=== PATIENT | female | born 1990 | race Caucasian/White ===

== ENCOUNTER 2020-08-12 14:40 | Emergency (ER) | payer BC ==
--- OUTSIDE RECORDS SUMMARY | 2020-08-12 14:44 | XMS REPORT | Continuity of Care Document ---
:1990 Author Organization [facility] t Address [address] [place] [address] Care Team Providers Name Role Phone Cole Mercer MD Primary Care Physician ALBERTO Attending Clinician Unavailable BLANCA Attending Clinician Unavailable GENEVA Attending Clinician Unavailable Problems Condition Condition Condition Status Onset Resolution Last Treating Co mments Source Name Details Category Date Date Treatment Clinician Date Bacterial Bacterial Problem Active [place] vaginosis Vaginosis 9-25 da 00:00: Medical 00 Group Intermenst Intermenst Problem Active M at[facility] rual rual 9-25 da bleeding - Bleeding - 00:00: Me dical irregular Irregular 00 Grou p HPV - HPV - Problem Active [place] Human Human 8-15 da papillomav Papillomav 00:00: Me dical irus test irus Test 00 Grou p positive 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 Intraepith 00:00: Me dical elial elial 00 Group lesion on Lesion on cervical Cervical Papanicola Papanicola ou smear ou Smear Oral Oral Problem Active [place] contracept Contracept 7-18 da ion ion 00:00: Medical 00 Group Gynecologi Gynecologi Problem Active M at[place] c c 7-18 da examinatio Examinatio 00:00: Me dical n n 00 Group 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 ysici 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 History of History of Problem Resolve Univers 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 d ity of female female [place] Physici ans ESTEPHANIA III ESTEPHANIA III Problem Active Univers (cervical (cervical ity of intraepith intraepith [place] elial elial Physici neoplasia neoplasia ans III) III) Pelvic Pelvic Problem Active Univers pain pain ity of [place] Physici ans Left knee Left knee Problem Active Uni vers pain pain ity of [place] Physici ans Encounter Encounter Problem Active Uni vers for for ity of preconcept preconcept [place] Physici consultati consultati an s on on Rupture of Rupture of Problem Active U nivers anterior anterior ity of cruciate cruciate [place] ligament ligament Physic i of left of left ans knee, knee, initial initial encounter encounter Complex Complex Problem Active Univers tear of tear of ity of medial medial [place] meniscus meniscus Physic i of left of left ans knee, knee, initial initial encounter encounter Complex Complex Problem Active Univers tear of tear of ity of lateral lateral [place] meniscus meniscus Physic i of left of left ans knee, knee, initial initial encounter encounter Positive Positive Problem Active Unive rs urine urine [place] test test Physici ans Right Right Problem Active Univers inguinal inguinal ity of pain pain [place] Physici ans UTI UTI Problem Active Univers symptoms symptoms ity of [place] Physici ans Problem Active Uni vers of unknown of unknown it y of anatomic anatomic [place] location location Physic i ans Acute Acute Problem Active Univers left-sided left-sided it y of low back low back [place] pain pain Physici without without ans sciatica sciatica Vaginal Vaginal Problem Active Univers discharge discharge ity of during during [place] , , Ph ysici antepartum antepartum an s Problem Active Uni vers ity of [place] Physici ans Yeast Yeast Problem Active Univers infection infection ity of of the of the [place] vagina vagina Physici ans Allergies, Adverse Reactions, Alerts This patient has no known allergies or adverse reactions. Family History Family Member Diagnosis Comments Start Date Stop Date Source Mother Family history of Univers ity of hypertension [place] Physic ians Mother Family history of Univers ity of diabetes mellitus [place] P hysicians Mother Family history of Univers ity of cardiac disorder [place] Ph ysicians Mother Family history of Univers ity of cerebrovascular [place] Phy sicians accident (CVA) Father Family history of Univers ity of hypertension [place] Physic ians Father Family history of Univers ity of diabetes mellitus [place] P hysicians Father Family history of Univers ity of cardiac disorder [place] Ph ysicians Father Family history of Univers ity of cerebrovascular [place] Phy sicians accident (CVA) Social History Social Habit Start Date Stop Date Quantity Comments Source Sex Assigned At [facility] ethodist Alcohol intake 2018-10-29 2018-10-29 Current drinker of [place] Vargas 00:00:00 00:00:00 alcohol (finding) Alcohol Comment 2018-10-29 2018-10-29 occasional [facility] ethodist 00:00:00 00:00:00 Smoking Status Start Date Stop Date Source Never smoker [place] Jose Juanis Medications Ordered Filled Start Stop Current Ordering Indication Dosage Frequency Signature Comments Components Source Medication Medication Date Date Medication? Clinician (SIG) Name Name Fluconazole Fluconazole 2019-0 Yes BRI TAKE 1 Univers 150 MG Oral 150 MG Oral 9-30 RIOS M.D. TABLET 1 ity of Tablet Tablet 00:00: TIME ONLY. Leonard as 00 Physici ans Aspirin EC Aspirin EC 2019-0 Yes SUBHRATHA TAKE 1 Univers 81 MG Oral 81 MG Oral 06-28 ALBERTO TABLET BY ity of Tablet Tablet 00:00: M.D. MOUTH [place] Delayed Delayed 00 EVERY DAY Phys ici Release Release ans Doxylamine- Doxylamine- 2019-0 Yes SUBHRATHA 1 TAKE 1 Univers Pyridoxine Pyridoxine 7-28 ALBERTO TABLET ity of 10-10 MG 10-10 MG 00:00: M.D. BEDTIME [place] Oral Tablet Oral Tablet 00 P hysici Delayed Delayed ans Release Release norgestimat Yes Take by Henry guillory e-ethinyl 10-29 mouth. Methodi estradiol 09:16: st (SPRINTEC, 33 28, ORAL) Lotemax 0.5 Lotemax 0.5 No Lotemax [place] % eye gel % eye gel 0.5 % eye da drops drops gel drops Medical Group metronidazo metronidazo No 1 BID metronidaz [place] le 500 mg le 500 mg ole 500 mg da tablet Take tablet Take tablet Medical 1 tablet 1 tablet Take 1 Group twice a day twice a day tablet by oral by oral twice a route for 7 route for 7 day by days. days. oral route for 7 days. Restasis Restasis No Restasis [place] MultiDose MultiDose MultiDose da 0.05 % eye 0.05 % eye 0.05 % eye Medical drops drops drops Group Sprintec Sprintec No 1 Q1D Sprintec [place] (28) 0.25 (28) 0.25 (28) 0.25 da mg-35 mcg mg-35 mcg mg-35 mcg Medical tablet Take tablet Take tablet Group 1 tablet 1 tablet Take 1 every day every day tablet by oral by oral every day route. route. by oral route. Vital Signs Vital Name Observation Time Observation Value Comments Source BP Diastolic 2019-07-22 83 mm[Hg] [place] 00:00:00 Medical Group Height 2019-07-22 66 [in_i] [place] 00:00:00 Medical Group BMI (Body Mass 2019-07-22 32.1 kg/m2 [place] Index) 00:00:00 Medical Group BP Systolic 2019-07-22 116 mm[Hg] [place] 00:00:00 Medical Group Body Weight 2019-07-22 199 [lb_av] [place] 00:00:00 Medical Group BP Diastolic 2019-07-09 79 mm[Hg] [place] 00:00:00 Medical Group Height 2019-07-09 66 [in_i] [place] 00:00:00 Medical Group BMI (Body Mass 2019-07-09 31.9 kg/m2 [place] Index) 00:00:00 Medical Group BP Systolic 2019-07-09 133 mm[Hg] [place] 00:00:00 Medical Group Body Weight 2019-07-09 197.9 [lb_av] [place] 00:00:00 Medical Group BP Diastolic 2019-06-11 84 mm[Hg] [place] 00:00:00 Medical Group Height 2019-06-11 66 [in_i] [place] 00:00:00 Medical Group BMI (Body Mass 2019-06-11 32.2 kg/m2 [place] Index) 00:00:00 Medical Group BP Systolic 2019-06-11 115 mm[Hg] [place] 00:00:00 Medical Group Body Weight 2019-06-11 199.5 [lb_av] [place] 00:00:00 Medical Group BP Diastolic 2019-05-29 82 mm[Hg] [place] 00:00:00 Medical Group Height 2019-05-29 66 [in_i] [place] 00:00:00 Medical Group BMI (Body Mass 2019-05-29 32.3 kg/m2 [place] Index) 00:00:00 Medical Group BP Systolic 2019-05-29 131 mm[Hg] [place] 00:00:00 Medical Group Body Weight 2019-05-29 200 [lb_av] [place] 00:00:00 Medical Group Systolic blood 2020-07-25 133 mm[Hg] Location: [facility]; [facility] 16:25:00 Position: [place] Physician s Sitting Diastolic blood 2020-07-25 86 mm[Hg] Location: [facility] 16:25:00 Position: [place] Physician s Sitting Body height 2020-07-25 66 [in_us] [facility] 16:25:00 [place] Physician s Weight 2020-07-25 194.375 [lb_av] University o f 16:25:00 [place] Physician s Body mass index 2020-07-25 31.37 kg/m2 University o f (BMI) [Ratio] 16:25:00 [place] Physicia ns Body temperature 2020-07-25 97 [degF] Method: [facility] 16:25:00 Temporal [place] Phys[place] s Heart Rate 2020-07-25 93 /min [facility] 16:25:00 [place] Physician s Systolic blood 2020-06-28 134 mm[Hg] Location: [facility] 16:11:00 Position: [place] Physician s Sitting Diastolic blood 2020-06-28 86 mm[Hg] Location: [facility] 16:11:00 Position: [place] Physician s Sitting Body height 2020-06-28 66 [in_us] University 16:11:00 [place] Physician s Weight 2020-06-28 193 [lb_av] [facility] 16:11:00 [place] Physician s Body mass index 2020-06-28 31.15 kg/m2 University o f (BMI) [Ratio] 16:11:00 [place] Physicia ns Body temperature 2020-06-28 97.8 [degF] Method: [facility] 16:11:00 Temporal [place] Physician s Heart Rate 2020-06-28 74 /min University 16:11:00 [place] Physician s Systolic blood 2020-05-27 118 mm[Hg] Location: [place]; [facility] pressure 11:30:00 Position: [place] Physician s Sitting Diastolic blood 2020-05-27 84 mm[Hg] Location: [place]; [facility] 11:30:00 Position: [place] Physician s Sitting Body height 2020-05-27 66 [in_us] University of 11:30:00 [place] Physician s Weight 2020-05-27 185 [lb_av] University of 11:30:00 [place] Physician s Body mass index 2020-05-27 29.86 kg/m2 University o f (BMI) [Ratio] 11:30:00 [place] Physicia ns Body temperature 2020-05-27 98.1 [degF] Method: [facility] 11:30:00 Temporal [place] Physician s Heart Rate 2020-05-27 81 /min University 11::00 [place] Physician s Systolic blood 2020-05-24 132 mm[Hg] Location: [place]; [facility] 11:07:00 Position: [place] Physician s Sitting Diastolic blood 2020-05-24 95 mm[Hg] Location: [place]; [facility] 11:07:00 Position: [place] Physician s Sitting Body height 2020-05-24 66 [in_us] University of 11:07:00 [place] Physician s Weight 2020-05-24 183 [lb_av] University of 11:07:00 [place] Physician s Body mass index 2020-05-24 29.54 kg/m2 University o f (BMI) [Ratio] 11:07:00 [place] Physicia ns Body temperature 2020-05-24 97.8 [degF] Method: [place] of 11::00 Temporal [place] Physician s Heart Rate 2020-05-24 77 /min University of 11:07:00 [place] Physician s Systolic blood 2020-05-05 136 mm[Hg] Location: [place]; [facility] pressure 16:16:00 Position: [place] Physician s Sitting Diastolic blood 2020-05-05 84 mm[Hg] Location: [place]; [facility] pressure 16:16:00 Position: [place] Physician s Sitting Body height 2020-05-05 66 [in_us] University 16:16:00 [place] Physician s Weight 2020-05-05 182 [lb_av] University of 16:16:00 [place] Physician s Body mass index 2020-05-05 29.38 kg/m2 University o f (BMI) [Ratio] 16:16:00 [place] Physicia ns Body temperature 2020-05-05 98.6 [degF] Method: [facility] 16:16:00 Temporal [place] Physician s Heart Rate 2020-05-05 77 /min University 16:16:00 [place] Physician s Systolic blood 2020-04-28 143 mm[Hg] Location: [place]; [facility] 14:45:00 Position: [place] Physician s Sitting Diastolic blood 2020-04-28 86 mm[Hg] Location: [place]; [facility] 14:45:00 Position: [place] Physician s Sitting Body height 2020-04-28 66 [in_us] University 14:45:00 [place] Physician s Weight 2020-04-28 183 [lb_av] University 14:45:00 [place] Physician s Body mass index 2020-04-28 29.54 kg/m2 University o f (BMI) [Ratio] 14:45:00 [place] Physicia ns Body temperature 2020-04-28 98.3 [degF] Method: [facility] 14:45:00 Temporal [place] Physician s Heart Rate 2020-04-28 90 /min University 14:45:00 [place] [facility] s Systolic blood 2020-01-08 138 mm[Hg] Location: [place]; [place] of [facility] 09:43:00 Position: [place] Physician s Sitting Diastolic blood 2020-01-08 90 mm[Hg] Location: [place]; [facility] 09:43:00 Position: [place] Physician s Sitting Body height 2020-01-08 66 [in_us] University 09:43:00 [place] Physician s Weight 2020-01-08 195 [lb_av] University of 09:43:00 [place] Physician s Body mass index 2020-01-08 31.47 kg/m2 University o f (BMI) [Ratio] 09:43:00 [place] Physicia ns Heart Rate 2020-01-08 64 /min University of 09:43:00 [place] Physician s Body temperature 2020-01-08 97.5 [degF] University of 09:43:00 [place] Physician s Systolic blood 2020-01-07 128 mm[Hg] University of pressure 10:04:00 [place] Physician s Diastolic blood 2020-01-07 90 mm[Hg] University o f pressure 10:04:00 [place] Physician s Body height 2020-01-07 66 [in_us] [facility] 10:04:00 [place] Physician s Weight 2020-01-07 185 [lb_av] [facility] 10:04:00 [place] Physician s Body mass index 2020-01-07 29.86 kg/m2 [place] o f (BMI) [Ratio] 10:04:00 [place] Phys[place] ns Heart Rate 2020-01-07 137 /min [facility] 10:04:00 [place] Physician s Respiratory rate 2020-01-07 18 /min [facility] 10:04:00 [place] Physician s BP Systolic 2019-08-21 126 mm[Hg] Location: [facility] :53:00 Position: [place] Physician s Sitting BP Diastolic 2019-08-21 85 mm[Hg] Location: [facility] 09:53:00 Position: [place] Physician s Sitting Height 2019-08-21 66 [in_us] [facility] 09:53:00 [place] Physician s Weight 2019-08-21 201 [lb_av] [facility] 09:53:00 [place] Physician s Body Mass Index 2019-08-21 32.44 kg/m2 University o f Calculated 09:53:00 [place] Physician s Heart Rate 2019-08-21 79 /min [facility] 09:53:00 [place] Physician s Procedures Procedure Date / Time Performing Clinician Source Performed [QL] BV/ VAGINITIS PANEL 2020-07-25 00:00:00 [facility]FFIR[facility] Physicians . [facility] - PAP w/reflex 2020-06-28 00:00:00 [facility] HPV if ASC-US or above Physician s [Q] HIV-1/2 Antigen and 2020-05-24 00:00:00 [facility] Antibodies, Fourth Physicians Generation, with Reflexes [Q] OBSTETRIC PANEL 2020-05-24 00:00:00 [facility] Physicians [QL] CULTURE, URINE, 2020-05-24 00:00:00 [facility] ity [facility] ROUTINE Physicians [QL] HEPATITIS C ANTIBODY 2020-05-24 00:00:00 [facility] [QL] TSH, 3RD GENERATION 2020-05-24 00:00:00 [facility] W/REFLEX TO FT4 Physicians [QL] HCG, TOTAL, QN 2020-05-05 00:00:00 [facility] Physicians [QL] CULTURE, URINE, 2020-05-05 00:00:00 [facility] ROUTINE Physicians [QL] PROGESTERONE 2020-04-28 00:00:00 [facility] Physicians [QL] HCG, TOTAL, QN 2020-04-28 00:00:00 [facility] Physicians Post Op Promis 29 Survey 2020-01-27 00:00:00 [facility] Physicians MR Knee wo contrast [id number] 2020-01-07 00:00:00 [facility] [U] XRAY KNEE 3 VWS LEFT 2020-01-06 00:00:00 [facility] [id number] Physicians . [facility] - Affirm VPIII 2019-08-21 00:00:00 [facility] (BV Panel) Physicians US Pelvis with Pelvis 2019-08-21 00:00:00 [facility] Transvaginal [id number] Physicians [address] [facility] xas electrosurgical excision Physici ans procedure History of Knee surgery [facility] Physicians History of Knee Surgery [facility] Physicians Plan of Care Planned Activity Planned Date Details Comments Source Future Scheduled Test 2020-05-28 INFLUENZA VACCINE H mary Buddhist 00:00:00 [code = INFLUENZA VACCINE] Diagnostic Test 2020-05-09 [QL] HCG, TOTAL, QN [facility] Pending 00:00:00 [code = [QL] HCG, Physicians TOTAL, QN] Diagnostic Test 2020-05-06 [QL] HCG, TOTAL, QN [facility] Pending 00:00:00 [code = [QL] HCG, Physicians TOTAL, QN] Future Scheduled Test 2020-05-04 [QL] HCG, TOTAL, QN [facility] 00:00:00 [code = [QL] HCG, Physicians TOTAL, QN] Future Scheduled Test 2020-05-04 [QL] HCG, TOTAL, QN [facility] 00:00:00 [code = [QL] HCG, Physicians TOTAL, QN] Future Scheduled Test 2020-05-02 [QL] HCG, TOTAL, QN [facility] 00:00:00 [code = [QL] HCG, Physicians TOTAL, QN] Future Scheduled Test 2020-05-02 [QL] HCG, TOTAL, QN [facility] 00:00:00 [code = [QL] HCG, Physicians TOTAL, QN] Future Scheduled Test 2013 Screening for [place] [facility] 00:00:00 malignant neoplasm of cervix (procedure) [code = 862236284] Future Appointment 2020-08-19 MARIO HOWARD, [facility] 13:00:00 Physicians Future Appointment 2020-08-19 Jamey FARIA [facility] 11:10:00 Keith DOMINGUEZ Future Appointment 2020-08-16 Jamey MORA [facility] 10:00:00 Keith BEAN Encounters Start End Encounter Admission Attending Care Care Encounter Source Date/Time Date/Time Type Type Clinicians Facility Department ID 2020-07-25 2020-07-25 AppointRACHELLE Childs [facility] [id number] Univers 16:00:00 16:00:00 t; Allegra FARIA M.D. [place] Carlos FARIA MObed ans 2020-07-25 2020-07-25 Appointmen RACHELLE RIOS [facility] [id number] Univers 15:45:00 15:45:00 t; BRI RIOS Center - it y of MICHELLE, M.D. [place] M.D. Physici ans 2020-06-28 2020-06-28 Appointmen ALBERTO [facility] Women's [id number] Univers 16:00:00 16:00:00 t; Donald FARIA M.D. [place] SUBHRATHA, Physi nighat MObed ans 2020-06-21 2020-06-21 Appointmen GENEVA [facility] [id number] Univers 11:15:00 11:15:00 t; MORGAN BEAN it y of WILLIAM, M.D. [place] M.D. Physici ans 2020-05-27 2020-05-27 Appointmen ALBERTO [facility] Women's [id number] Univers 11:30:00 11:30:00 t; Donald FARIA M.D. [place] Carlos FARIA MObed ans 2020-05-24 2020-05-24 Appointmen ALBERTO [facility] Women's [id number] Univers 11:10:00 11:10:00 t; Donald FARIA M.D. [place] SUBHRATHA, Physi ci M.D. ans 2020-05-05 2020-05-05 Appointmen ALBERTO [facility] Women's [id number] Univers 16:00:00 16:00:00 t; SUBATHA, [place] - it y of [place]y DOMINGUEZ [place] SUBHRATHA, Physi ci M.D. ans 2020-05-03 2020-05-03 Appointmen RACHELLE BEAN [facility] [id number] Univers 11:00:00 11:00:00 t; MORGAN BEAN it y of Jamey MORA M.D. Physici ans 2020-04-28 2020-04-28 Appointmen ALBERTO [facility] Marycarmen's [id number] Univers 14:40:00 14:40:00 t; [facility] [place] - [facility] [place] of [place] DOMINGUEZ [place] SUBATHA, Physi ci M.D. ans 2020-03-22 2020-03-22 AppointRACHELLE Johnson UTP [id number] Univers 11:15:00 11:15:00 t; MORGAN BEAN it y of Jamey MORA M.D. Physici ans 2020-03-01 2020-03-01 AppointRACHELLE Johnson UTP [id number] Univers 10:20:00 10:20:00 t; MORGAN BEAN it y of Jamey MORA M.D. Physici ans 2020-02-02 2020-02-02 AppointRACHELLE Johnson UTP [id number] Univers 10:00:00 10:00:00 t; MORGAN BEAN it y of Jamey MORA M.D. Physici ans 2020-01-19 2020-01-19 AppointRACHELLE Johnson [facility]TP [id number] Univers 11:30:00 11:30:00 t; MORGAN BEAN it y of Jamey MORA M.D. Physici ans 2020-01-13 2020-01-13 AppointRACHELLE Johnson UTP [id number] Univers 07:00:00 07:00:00 t; MORGAN BEAN it y of Jamey MORA M.D. Physici ans 2020-01-13 2020-01-13 Outpatient [facility] [id number] 05:30:00 05:30:00 l Kris Nguyen l 2020-01-08 2020-01-08 [facility] [id number] Univers 09:30:00 09:30:00 t; BIENVENIDO, Center - it y Jamey Bains s SHIRAHRATHHuey, Physi ci MObed ans 2020-01-07 2020-01-07 [facility] [id number] Univers 09:30:00 09:30:00 t; MORGAN BEAN, Trauma it y of Jamey MORA [facility] Jame[address] [facility] 2019-08-21 2019-08-21 [facility] [id number] Univers 09:50:00 09:50:00 t; SUBHRATHHuey, [place] - it y Jamey Bains s SUBHRATHA, Physi ci MObed [facility] 2019-07-22 2019-07-22 [place] - [id number] [place] 00:00:00 00:00:00 Discovery Edith HendricksNP: [address] [place] [phone] , Ph. [phone] 2019-07-09 2019-07-09 José Manuel [place] - [id number] M atagor 00:00:00 00:00:00 Discovery darrell Sutherland MD: [address] [place] [phone] , Ph. [phone] 2019-06-11 2019-06-11 [place] - [id number] [place] 00:00:00 00:00:00 Discovery darrell Hendricks NP: [address] [place] [phone] , Ph. [phone] 2019-05-29 2019-05-29 [place] - [id number] 2 [place] 00:00:00 00:00:00 Discovery darrell Hendricks WHNP: [address] [facility] Gabriel [place] [address], [place] [address] , Ph. [phone] Results Test Description Test Time Test Comments Results Result Comments Source [QL] BV/ VAGINITIS PANEL DNA PROBE AFFIRM 2020-07-25 00:00:0 0 Test Item Value Reference Range Interpretation Comme nts TRICHOMONAS: (test code = TRICHOMONAS:) NOT DETECTED NOT DETECTED N GARDNERELLA: (test code = GARDNERELLA:) NOT DETECTED NOT DETECTED N MACHO: (test code = MACHO:) DETECTED NOT DETECTED A [facility] Physicians. [facility] - PAP w/reflex HPV if ASC-US or above 2020-06-28 00:00:00 Test Item Value Reference Range Interpretation Comments Case (test code = Click ImageLink button N Case) for report. [facility] Physicians[Q] OBSTETRIC [id number] 11:31:00 Test Item Value Reference Range Interpretation Comments WHITE BLOOD CELL 6.5 {Thousand/u} 3.8-10.8 N COUNT (test code = WHITE BLOOD CELL COUNT) RED BLOOD CELL 4.32 3.80-5.10 N COUNT (test code = {Million/uL} RED BLOOD CELL COUNT) HEMOGLOBIN; Normal 13.2 g/dl 11.7-15.5 N (test code = 44096-4) HEMATOCRIT; Normal 38.6 % 35.0-45.0 N (test code = 4544-3) MCV; Normal (test 89.4 fL 80.0-100.0 N code = 787-2) MCHC; Normal (test 34.2 g/dl 32.0-36.0 N code = 04796-1) RDW; Normal (test 11.9 % 11.0-15.0 N code = 788-0) PLATELET COUNT; 291 {Thousand/u} 140-400 N Normal (test code = 777-3) MPV; Normal (test 10.2 fL 7.5-12.5 N code = 59274-8) ABSOLUTE 4427 {cells/uL} 3126-3873 N NEUTROPHILS (test code = ABSOLUTE NEUTROPHILS) ABSOLUTE 1567 {cells/uL} 850-3900 N LYMPHOCYTES (test code = ABSOLUTE LYMPHOCYTES) ABSOLUTE MONOCYTES 436 {cells/uL} 200-950 N (test code = ABSOLUTE MONOCYTES) ABSOLUTE 52 {cells/uL} 15-500 N EOSINOPHILS (test code = ABSOLUTE EOSINOPHILS) ABSOLUTE BASOPHILS 20 {cells/uL} 0-200 N (test code = ABSOLUTE BASOPHILS) NEUTROPHILS (test 68.1 % N code = NEUTROPHILS) LYMPHOCYTES (test 24.1 % N code = LYMPHOCYTES) MONOCYTES; Normal 6.7 % N (test code = 53029-9) EOSINOPHILS; Normal 0.8 % N (test code = 39399-8) BASOPHILS; Normal 0.3 % N (test code = 82931-2) ANTIBODY SCREEN, NO ANTIBODIES N Reference range RBC W/REFL ID, DETECTED No TITER AND AG; antibodies det ected Normal (test code = This ass ay is a 890-4) screening test for the detection o f red blood cell antibodies. The test is not to be us ed for pretransfus ion screening or fo r the medical managem ent of an alloimmun ized . ABO GROUP (test O code = 883-9) RH TYPE (test code RH(D) POSITIVE For add itional = 91797-9) information, pl ease refer to http://educatio n.Que stDiagnostics.c om/fa q/JHJ395 (This link is being provid ed for informational/e ducat ional purposes only.) RPR (DX) W/REFL NON-REACTIVE NON-REACTIVE N TITER AND CONFIRMATORY TESTING (test code = RPR (DX) W/REFL TITER AND CONFIRMATORY TESTING) HEPATITIS B SURFACE NON-REACTIVE NON-REACTIVE N ANTIGEN; Normal (test code = 5195-3) RUBELLA ANTIBODY 1.65 {index} N Index (IGG); Normal (test Interpre tation code = 84580-0) ----- <0.90 Not consistent with Immunity 0.90-0.99 Equivocal > or = 1.00 Consi stent with Immunity The presence of rub josesito IgG antibody suggests immunization or past or current infe ction withrubella vir us. [facility][Q] HIV-1/2 Antigen and Antibodies, Fourth Generation, with [id number] 11:31:00 Test Item Value Reference Range Interpretation Comments HIV AG/AB, 4TH NON-REACTIVE NON-REACTIVE N HIV-1 antigen and GEN; Normal HIV-1/HIV-2 ant ibodies were (test code = [place] [address]-0) laboratory evid ence of HIVinfection. Mishel YIN NOTE: This informatio n has been disclosed toyou from records whose confidentiality may beprotected by state law. If your state r equires suchprotection, then the state law prohi bits you frommaking any further disclosure of t he informationwith out the specific writte n consent of the personto om it pertains, or as otherwise permitted by peggy saleh.A general authorization f or the release of medi micky orother information is NOT sufficient for this purpose. For a dditional information ple ase refer tohttp://educat ionRodo Medical/fa q/JCD642(Thi s link is being provided for informational/e ducational purposes only.) The performance of this assay has not been clinicallyvalid ated in patients less t kelsey 2 years old. [facility][QL] HEPATITIS C [id number] 11:31:00 Test Item Value Reference Range Interpretation Comments HEPATITIS C NON-REACTIVE NON-REACTIVE N ANTIBODY; Normal (test code = 68226-0) SIGNAL TO CUT-OFF 0.02 <1.00 N HCV antibo dy was (test code = SIGNAL non-reac tive. There TO CUT-OFF) is no laborator y evidence of HCV infection. In m ost cases, no furth er action is requi red. However,if rece nt HCV exposure is suspected, a te [place] HCV RNA([place] [address]) is sugge sted. For additional information ple ase refer tohttp://educat ion.[employer]/fa q/PXM64u9(This link is being provid ed for informational/e ducati onal purposes o nly.) [facility][QL] TSH, 3RD GENERATION W/REFLEX TO [id number] 11:31:00 Test Item Value Reference Range Interpretation Comments TSH, 3RD GENERATION 1.04 {MIU/L} N Referenc e Range W/REFLEX TO FT4 (test > or code = TSH, 3RD = 20 Years GENERATION W/REFLEX 0.40-4.5 0 TO FT4) Range s First trim kayleigh 0.26-2.66 Second trimest er 0.55-2.73 Third trimester 0.43-2.91 [facility][] CULTURE, URINE, [id number] 11:31:00 Test Item Value Reference Range Interpretation Comments CULTURE (test code = See Comment CULTURE , URINE, CULTURE) ROUTINE [facility] ro Number: [id number] Test Status: Final Specimen Source: URINE , CLEAN CATCH Sp ecimen Quality: Adequ ate Result: No Growth [facility][QL] HCG, TOTAL, [id number] 10:38:00 Test Item Value Reference Range Interpretation Comments HCG, TOTAL, QN 6460 {miU/ml} Reference Ra ngeNon (test code = or premenopausa l HCG, TOTAL, <5Postmenopausa l QN) <10 Value s from different assay methods may vary.The us e of this assay to monito r or to diagnose patien ts with cancer or any c ondition unrelatedto pre gnancy has not been cleare d or approved bythe FDA or the desk clerk of the assay. [facility][] CULTURE, URINE, [id number] 10:35:00 Test Item Value Reference Range Interpretation Comments CULTURE (test code = See Comment CULTURE , URINE, CULTURE) ROUTINE [facility] ro Number: [id number] Test Status: Final Specimen Source: URINE , CLEAN CATCH Sp ecimen Quality: Adequ ate Result: No Growth [facility][QL] HCG, TOTAL, [id number] 10:41:00 Test Item Value Reference Range Interpretation Comments HCG, TOTAL, QN 2386 {miU/ml} Reference Ra ngeNon (test code = or premenopausa l HCG, TOTAL, <5Postmenopausa l QN) <10 Value s from different assay methods may vary.The us e of this assay to monito r or to diagnose patien ts with cancer or any c ondition unrelatedto pre gnancy has not been cleare d or approved bythe FDA or the desk clerk of the assay. [facility][QL] HCG, TOTAL, [id number] 10:58:00 Test Item Value Reference Range Interpretation Comments HCG, TOTAL, QN 1109 {miU/ml} Results veri fied by repeat (test code = analysis on dil ution. HCG, TOTAL, Reference Range Non QN) or premenopausa l <5Postmenopausa l <10 Value s from different assay methods may vary.The us e of this assay to monito r or to diagnose patien ts with cancer or any c ondition unrelatedto pre gnancy has not been cleare d or approved bythe FDA or the desk clerk of the assay. [facility][QL] HCG, TOTAL, [id number] 10:45:00 Test Item Value Reference Range Interpretation Comments HCG, TOTAL, QN 447 {miU/ml} Reference Ran geNon (test code = or premenopausa l HCG, TOTAL, QN) <5Postmenopa usal <10 Value s from different assay methods may vary.The us e of this assay to monito r or to diagnose patien ts with cancer or any c ondition unrelatedto pre gnancy has not been cleare d or approved bythe FDA or the desk clerk of the assay. [facility][QL] [id number] 15:02:00 Test Item Value Reference Range Interpretation Comments PROGESTERONE (test code 18.3 ng/ml N Refe rence Ranges = PROGESTERONE) Female Follicular Pha se < 1.0 Luteal Phase 2.6-21.5 Post menopausal < 0.5 1st Trimester 4.1-34.0 2nd Trimester 24.0-76.0 3rd Trimester 52.0-302.0 [facility][QL] HCG, TOTAL, [id number] 15:02:00 Test Item Value Reference Range Interpretation Comments HCG, TOTAL, QN 61 {miU/ml} Reference Ran geNon (test code = or premenopausa l HCG, TOTAL, QN) <5Postmenopa usal <10 Values from different assay methods may vary.The use of this assay to monitor or t o diagnose patients with c ancer or any condition unrel atedto has n ot been cleared or appr hardeep bythe FDA or the manu facturer of the assay. [facility][O] Urine Test (in office)2020-04-28 14:56:00 Test Item Value Reference Range Interpretation Comments Test, Urine; Normal faint positive N (test code = 2106-3) [facility] Knee wo contrast [id number] 13:58:00EXAM: MR LEFT KNEE WITHOUT CONTRASTDATE: 01/08/2020 13:30 CDTINDICATION: M25.562 Pain in left kneeCOMPARISON: None.TECHNIQUE: Multiplanar, multisequence noncontrast MR imaging of the knee.FINDINGS:MENISCI:Medial meniscus: Horizontal oblique tear of the posterior horn extending intothe posterior horn body junction with a nondisplaced flap component in theanterior horn. Anterior horn and root are intact. Capsular ligaments intact.Lateral meniscus: There is some irregularity of the posterior horn. Nodisplaced tear identified. Capsular ligaments intact.LIGAMENTS:ACL: Complete midsubstance tear of the anterior cruciate ligament.PCL: Grade 1 sprain of the posterior cruciate ligament.MCL: Grade 1 sprainof the proximal attachment.LCL: Grade 1 sprain of the fibular collateral ligament proximal attachment.Biceps femoris tendon is intact.EXTENSOR MECHANISM:The quadriceps tendon, patella and the patellar tendon are intact.MUSCLES:No signal abnormality in the muscles.CARTILAGE:Patellofemoral compartment: No chondral defects.Medial compartment: No chondral defects.Lateral compartment: No chondral defects.BONE:No fractures. Minimal bone marrow edema is present within the posterolateralaspect of the tibialplateau.SOFT TISSUE:Some soft tissue swelling is seen in the superolateral aspect of Hoffa's fatpad.Soft tissue swelling is also seen in the prepatellar and pretibialregions. A large knee effusion is present with intra-articular debris. Noabnormality of the neurovascular structures.IMPRESSION:1. Complete mid substance tear of the ACL.2. Medial meniscus posterior root horizontal oblique tear extending into thehorn body junction with a nondisplaced flap component in the posterior horn.3. Lateral meniscus posterior horn irregularity without a displaced tear.4. Grade 1 sprain of the MCL.5. Grade 1 sprain of the fibular collateral ligament.6. Large knee effusion with intra-articular debris.--This report was dictated by a Clinical Research Monitor/Fellow/Physician Solar Sales Associate. Ihave personallyreviewed the images as well as the interpretation and agree with the findings.Read by: Brent Angelo MD Resident/Fellow/PhysicianAssistant: Brent Angelo MDDictated Date/time: 01/08/20 15:00Electronically Signed by: Thiago Sarmiento MD 01/07/2017:12FINAL REPORTUnEn[facility][U] XRAY KNEE 3 VWS LEFT [id number] 10:37:00Images acquired, not reported on this accession number.[facility]. [facility] - Affirm VPIII (BV Panel) 2019-08-21 00:00:00 Test Item Value Reference Range Interpretation Comments Affirm VPIII (BV Panel) REPORT See Comment (test code = Affirm VPIII (BV Panel) REPORT) [facility]icianspregnancy test, [id number] 15:45:08 Test Item Value Reference Range Interpretation Comments Test (test code = negative Test) [facility] Grouppregnancy test, [id number] 15:45:08 Test Item Value Reference Range Interpretation Comments Test (test code = negative Test) [facility] [id number] 12:09:00 Test Item Value Reference Range Interpretation Comments Surgical pathology see separate pathology study (test code = report. 20699-5) [facility] Grouppregnancy test, [id number] 09:06:14 Test Item Value Reference Range Interpretation Comments Test (test code = negative Test) [facility] [id number] 09:06:14 Test Item Value Reference Range Interpretation Comments Test (test code = negative Test) [facility] [id number] 10:13:58 Test Item Value Reference Range Interpretation Comments Test (test code = negative Test) [facility] [id number] 10:13:58 Test Item Value Reference Range Interpretation Comments Test (test code = negative Test) [facility]omat[facility]+Neisseria gonorrhoeae DNA [Presence] in Cervix by Probe and target amplification [id number] 01:42:00 ResultsMatagoDelta Regional Medical Centerpap, LB + HR [id number] 01:42:00 Test Item Value Reference Range Interpretation Comments results (test code = results) [id number] (test code = [id number]) positive [facility]
--- OUTSIDE RECORDS SUMMARY | 2020-08-12 14:44 | XMS REPORT | Summary of Care ---
:1990 Author Name Elie Zhao Address Unavailable Unavailable , Care Team Providers Name Role Phone ALBERTO Concepcion Unavailable Unavailable JUSTIN ANGEL Unavailable Unavailable DREA ANGEL Unavailable Unavailable BLANCA ANGEL UT Unavailable Unavailable ALBERTO ANGEL UT Unavailable Unavailable GENEVA ANGEL UT Unavailable Unavailable Unavailable Unavailable Unavailable Functional Status Name Dates Details Functional status health issues are not documented Status: Name Dates Details Cognitive status health issues are not documented Status: Problems Name Dates Details ESTEPHANIA III (cervical intraepithelial neoplasia III) (233.1, D06 .9) Status: Active Pelvic pain (R10.2) Status: Active Left knee pain (719.46, M25.562) Status: Active Encounter for preconception consultation (V26.49, Z31.69) Status: Active Rupture of anterior cruciate ligament of left knee, initial encounter (844.2, S83.512A) Status: Active Complex tear of medial meniscus of left knee, initial encounter (836.0, S83.232A) Status: Active Complex tear of lateral meniscus of left knee, initial encounter (836.1, S83.272A) Status: Active Right inguinal pain (789.03, R10.31) Sta tus: Active Positive urine test (V72.42, Z32.01) Status: Active UTI symptoms (788.99, R39.9) Status: Act [place] Acute left-sided low back pain without sciatica (724.2, M54. 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 History of No significant past medical history Status: Resolved Procedures Procedure Dates Details [Q] HIV-1/2 Antigen and Antibodies, Fourth Generation, Date: 24-May-2020 with Reflexes [Q] OBSTETRIC PANEL Date: 24-May-2020 [QL] CULTURE, URINE, ROUTINE Date: 24-May-2020 [QL] HEPATITIS C ANTIBODY Date: 24-May-2020 [QL] TSH, 3RD GENERATION W/REFLEX TO FT4 Date: 24-May-2020 History of Loop electrosurgical excision procedure Completed History of Knee surgery Completed History of Knee Surgery Completed Immunization Name Dates Details Immunizations not documented Family History Name Dates Details Family history of hypertension (V17.49, Z82.49) Status: Active Family history of diabetes mellitus (V18.0, Z83.3) Status: Active Family history of cardiac disorder (V17.49, Z82.49) Status: Active Family history of cerebrovascular accident (CVA) (V17.1, Z82 .3) Status: Active Name Dates Details Family history of hypertension (V17.49, Z82.49) Status: Active Family history of diabetes mellitus (V18.0, Z83.3) Status: Active Family history of cardiac disorder (V17.49, Z82.49) Status: Active Family history of cerebrovascular accident (CVA) (V17.1, Z82 .3) Status: Active Social History Name Dates Details - Status: Name Dates Details Never smoked tobacco (finding) Vital Signs Date Test Result Details [id number] Systolic blood pressure 132 mm[Hg] Status: Comments: Location: LUE; Position: Sitting Diastolic blood pressure 95 mm[Hg] Status: Comment s: Location: LUE; Position: Sitting Body height 66 in Status: Weight 183 lb Status: Body mass index (BMI) [Ratio] 29.54 kg/m2 Status: Body surface area Derived from formula 1.93 m2 S tatus: Body temperature 97.8 f Status: Comments: Nh thod: Temporal Heart Rate 77 /min Status: [id number]:16 Systolic blood pressure 136 mm[Hg] Status: Comments: Location: LUE; Position: Sitting Diastolic blood pressure 84 mm[Hg] Status: Comment s: Location: LUE; Position: Sitting Body height 66 in Status: Weight 182 lb Status: Body mass index (BMI) [Ratio] 29.38 kg/m2 Status: Body surface area Derived from formula 1.92 m2 S tatus: Body temperature 98.6 f Status: Comments: Me thod: Temporal Heart Rate 77 /min Status: :45 Systolic blood pressure 143 mm[Hg] Status: Comments: Location: LUE; Position: Sitting Diastolic blood pressure 86 mm[Hg] Status: Comment s: Location: LUE; Position: Sitting Body height 66 in Status: Weight 183 lb Status: Body mass index (BMI) [Ratio] 29.54 kg/m2 Status: Body surface area Derived from formula 1.93 m2 S tatus: Body temperature 98.3 f Status: Comments: Me thod: Temporal Heart Rate 90 /min Status: Physical Findings 0 Status: Comments: Al cohol Screen - How many times in the past yr have you had 5 (for M) or 4 (for F) or 4 (for all > 65yrs) or more drinks in a day? Results Date Description Value Details :56 [O] Urine Test (in office) Test, Urine faint positive (Normal) :02 [QL] PROGESTERONE PROGESTERONE 18.3 ng/ml (Normal) Comments: R eference Ranges Female Follicular Phase < 1.0 Luteal Phase 2.6-21.5 Post menopausal < 0.5 1st Trimester 4.1-34.0 2nd Trimester 24.0-76.0 3rd Trimester 52.0-302.0 :02 [QL] HCG, TOTAL, QN HCG, TOTAL, QN 61 {miU/ml} (Above high Comment s: Reference RangeNon or premenopausal <5Postmenopausal <10 Values from different assay methods may vary.The use of this assay to monitor or to diagnose patients with cance threshold) r or any conditi on unrelatedto has not been cleared or approved bythe FDA or the cook apprentice pastry of the assay. :45 [QL] HCG, TOTAL, QN Comments: REPORT COM MENT:FASTING:NO HCG, TOTAL, QN 447 {miU/ml} (Above high Commen ts: Reference RangeNon or premenopausal <5Postmenopausal <10 Values from different assay methods may vary.The use of this assay to monitor or to diagnose patients with cance threshold) r or any conditi on unrelatedto has not been cleared or approved bythe FDA or the cook apprentice pastry of the assay. :58 [QL] HCG, TOTAL, QN HCG, TOTAL, QN 1109 {miU/ml} (Above high Comme nts: Results verified by repeat analysis on dilution. Reference RangeNon or premenopausal <5Postmenopausal <10 Values from different assay methods may vary.The use of this as threshold) say to monitor o r to diagnose patients with cancer or any condition unrelatedto has not been cleared or approved bythe FDA or the cook apprentice pastry of the assay. :41 [QL] HCG, TOTAL, QN Comments: REPORT COM MENT:FASTING:NO HCG, TOTAL, QN 2386 {miU/ml} (Above high Comme nts: Reference RangeNon or premenopausal <5Postmenopausal <10 Values from different assay methods may vary.The use of this assay to monitor or to diagnose patients with cance threshold) r or any conditi on unrelatedto has not been cleared or approved bythe FDA or the cook apprentice pastry of the assay. :38 [QL] HCG, TOTAL, QN Comments: REPORT COM MENT:FASTING:NO HCG, TOTAL, QN 6460 {miU/ml} (Above high Comme nts: Reference RangeNon or premenopausal <5Postmenopausal <10 Values from different assay methods may vary.The use of this assay to monitor or to diagnose patients with cance threshold) r or any conditi on unrelatedto has not been cleared or approved bythe FDA or the cook apprentice pastry of the assay. :35 [QL] CULTURE, URINE, ROUTINE CULTURE Comments: CULTUR E, URINE, ROUTINE Micro Number: [id number] Test Status: Final Specimen Source: URINE, CLEAN CATCH Specimen Quality: Adequate Result: No Growth Plan of Care Name Dates Details Planned Observations Planned Goals not documented Planned Encounters Appointment; ALAN DOWLING P.A. On: 14-Jun-2020 15:30 Appointment; BIENVENIDO DOMINGUEZ M.D. On: 28-Jun-2020 1 6:00 Appointment; BIENVENIDO DOMINGUEZ M.D. 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 Discussed testing options including nuchal translucency, Quad and NIPT. At this point in time the patient is unsure and will discuss with family- Nausea- Diclegis rx, mint, tommie, small meals recommended- RTO 4 weeks for care. Instructions Name Dates Details Instructions not documented Encounters Appointment; BIENVENIDO DOMINGUEZ M.D. On: 21-Aug-2019 9:50 Encounter Diagnosis: Problem not documented Appointment; MORGAN BEAN M.D. On: 07-Jan-2020 9:3 0 Encounter Diagnosis: Problem not documented Appointment; BIENVENIDO DOMINGUEZ M.D. On: 08-Jan-2020 9:30 Encounter Diagnosis: Problem not documented Appointment; MORGAN BEAN M.D. On: 13-Jan-2020 7:0 0 Encounter Diagnosis: Problem not documented Appointment; MORGAN BEAN M.D. On: 19-Jan-2020 11: 30 Encounter Diagnosis: Problem not documented Appointment; MORGAN BEAN M.D. On: 02-Feb-2020 10:0 0 Encounter Diagnosis: Problem not documented Appointment; MORGAN BEAN M.D. On: 01-Mar-2020 10:2 0 Encounter Diagnosis: Problem not documented Appointment; MORGAN BEAN M.D. On: 22-Mar-2020 11: 15 Encounter Diagnosis: Problem not documented Appointment; BIENVENIDO DOMINGUEZ M.D. On: 28-Apr-2020 1 4:40 Encounter Diagnosis: Problem not documented Appointment; MORGAN BEAN M.D. On: 03-May-2020 11:0 0 Encounter Diagnosis: Problem not documented Appointment; BIENVENIDO DOMINGUEZ M.D. On: 05-May-2020 1 6:00 Encounter Diagnosis: Problem not documented Appointment; BIENVENIDO DOMINGUEZ M.D. On: 24-May-2020 11:10 Encounter Diagnosis: Problem not documented
--- OUTSIDE RECORDS SUMMARY | 2020-08-12 14:44 | XMS REPORT | Clinical Summary ---
:1990 Author Organization [facility] Address [address] [place] [id number] Care Team Providers Name Role Phone Kimani Mercer MD Primary Care Provider Allergies No Known Active Allergies Medications Medication Sig Dispensed Refills Start Date End Date Status norgestimate-ethinyl Take by mouth. 0 Active estradiol (SPRINTEC, 28, ORAL) Active Problems Not on file Surgical History Surgery Date Site/Laterality Comments ORTHOPEDIC SURGERY 10/28/2007 - 10/27/2008 Left arthros copy Social History Tobacco Use Types Packs/Day Years Used Date Never Smoker Alcohol Use Drinks/Week oz/Week Comments Yes occasional Sex Assigned at Date Recorded Not on file Last Filed Vital Signs Not on file Plan of Treatment Health Maintenance Due Date Last Done Comments CERVICAL CANCER SCREENING 2013 INFLUENZA VACCINE 05/28/2020 Results Not on fileafter 08/12/2019 Advance Directives For more information, please contact: [phone] Type Date Recorded 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
--- OUTSIDE RECORDS SUMMARY | 2020-08-12 14:45 | XMS REPORT | Summary of Care ---
:1990 Author Name ALBERTO Concepcion Address Unavailable Unavailable , Care Team Providers Name Role Phone ALBRETO Concepcion Unavailable Unavailable JUSTIN ANGEL Unavailable Unavailable [...] without sciatica (724.2, M54. 5) Status: Active of unknown anatomic location (V23.87, O36.80X0) Status: Active Vaginal discharge during , antepartum (646.83, O26. 899) Status: Active (V22.2, Z34.90) Status: Active Medications Name Dates Details Doxylamine-Pyridoxine 10-10 MG Oral Tabl et Delayed Release TAKE 1 TABLET BEDTIME Quantity: 30 Refills: 1 ALBERTO Concepcion, SUBHRATHA Start : 24-May-2020 Active Aspirin EC 81 MG Oral Tablet Delayed Release TAKE 1 TABLET DAILY DIRECTED. Quantity: 30 Refills: 6 BIENVENIDO DOMINGUEZ M.D. 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 [facility] - PAP w/reflex HPV if ASC-US or above Date: 020 History of Loop electrosurgical excision procedure Completed [...] (finding) Vital Signs Date Test Result Details [id number] Systolic blood pressure 134 mm[Hg] Status: Comments: Location: LUE; Position: Sitting Diastolic blood pressure 86 mm[Hg] Status: Comment s: Location: LUE; Position: Sitting Body height 66 in Status: Weight 193 lb Status: Body mass index (BMI) [Ratio] 31.15 kg/m2 Status: Body surface area Derived from formula 1.97 m2 S tatus: Body temperature 97.8 f Status: Comments: Me thod: Temporal Heart Rate 74 /min Status: Results Date Description Value Details Results not documented Plan of Care Name Dates Details Planned Observations Planned Goals not documented Planned Encounters Appointment; BIENVENIDO DOMINGUEZ M.D. On: 07-Jul-2020 16:00 Appointment; BIENVENIDO DOMINGUEZ M.D. On: 25-Jul-2020 16:00 Appointment; MORGAN BEAN M.D. On: 16-Aug-2020 10: 00 Interventions Provided Medication ChangesAspirin EC 81 MG Oral Tablet Delayed Release - Start Labs/Procedures/Imaging. [facility] - PAP w/reflex HPV if ASC-US or above; To Be Done: 28 Jun 2020 Instructions Name Dates Details Instructions not documented Encounters Appointment; BIENVNEIDO DOMINGUEZ M.D. On: 21-Aug-2019 9:50 Encounter Diagnosis: [...] 24-May-2020 11:10 Encounter Diagnosis: Problem not documented Appointment; BIENVENIDO DOMINGUEZ M.D. On: 27-May-2020 11:30 Encounter Diagnosis: Problem not documented Appointment; MORGAN BEAN M.D. On: 21-Jun-2020 11: 15 Encounter Diagnosis: Problem not documented Appointment; BIENVENIDO DOMINGUEZ M.D. On: 28-Jun-2020 1 6:00 Encounter Diagnosis: Problem not documented
--- OUTSIDE RECORDS SUMMARY | 2020-08-12 14:45 | XMS REPORT | Summary of Care ---
:1990 Author Name Ori Zhao Address [facility] Unavailable , Care Team Providers Name Role Phone BLANCA Concepcion Unavailable Unavailable ALBERTO oCncepcion Unavailable Unavailable JUSTIN ANGEL Unavailable Wei SHEPARD MD Unavailable Wei RIOS MD [facility] Unavailable Unavailable ALBERTO ANGEL [facility] Unavailable [...] Oral Tablet Delayed Release TAKE 1 TABLET BY MOUTH EVERY DAY Quantity: 90 Refills: 1 ALBERTO M.D., SUBHRATHA Start : 28-Jun-2020 Active Allergies and Adverse [...] history Status: Resolved Procedures Procedure Dates Details [QL] BV/ VAGINITIS PANEL DNA PROBE AFFIRM Date: 25-Jul-2020 History of Loop electrosurgical excision procedure Completed [...] (finding) Vital Signs Date Test Result Details [id number] Systolic blood pressure 133 mm[Hg] Status: Comments: Location: LUE; Position: Sitting Diastolic blood pressure 86 mm[Hg] Status: Comment s: Location: LUE; Position: Sitting Body height 66 in Status: Weight 194.375 lb Status: Body mass index (BMI) [Ratio] 31.37 kg/m2 Status: Body surface area Derived from formula 1.98 m2 S tatus: Body temperature 97 f Status: Comments: Me thod: Temporal Heart Rate 93 /min Status: [id number]:11 Systolic blood pressure 134 mm[Hg] Status: Comments: [...] /min Status: Results Date Description Value Details 28-Jun-20200:00 . [facility] - PAP w/reflex HPV if ASC-US or above Case Click ImageLink button for repor t. (Normal) Plan of Care Name Dates Details Planned Observations Planned Goals not documented Planned Encounters Appointment; BIENVENIDO DOMINGUEZ M.D. On: 19-Aug-2020 11:10 Appointment; LEE 1 On: 19-Aug-2020 13:00 Interventions Provided Labs/Procedures/Imaging[QL] BV/ VAGINITIS PANEL DNA PROBE AFFIRM; To Be Done: 25 Jul 2020 Instructions Name Dates Details Instructions not [...] 6:00 Encounter Diagnosis: Problem not documented Appointment; BRI RIOS M.D. On: 25-Jul-2020 15:4 5 Encounter Diagnosis: Problem not documented
--- OUTSIDE RECORDS SUMMARY | 2020-08-12 14:45 | XMS REPORT | Summary of Care ---
[...] MOUTH EVERY DAY Quantity: 90 Refills: 1 BIENVENIDO DOMINGUEZ M.D. Start : 28-Jun-2020 Active [...] (finding) Vital Signs Date Test Result Details [id number] Systolic blood pressure 134 mm[Hg] Status: Comments: [...] Planned Encounters Appointment; BIENVENIDO DOMINGUEZ M.D. On: 25-Jul-2020 16:00 Appointment; MORGAN BEAN M.D. On: 16-Aug-2020 10: 00 Interventions Provided Medication ChangesAspirin EC 81 MG Oral Tablet Delayed Release - Renew Instructions Name Dates Details Instructions not documented [...]
--- OUTSIDE RECORDS SUMMARY | 2020-08-12 14:45 | XMS REPORT | Summary of Care ---
:1990 Author Name Jj Rudd Address Unavailable Unavailable , Care Team Providers [...] TABLET BEDTIME Quantity: 30 Refills: 1 ALBERTO MObed, SUBHRATHA Start : 24-May-2020 Active Aspirin EC [...] (finding) Vital Signs Date Test Result Details [id number] Systolic blood pressure 134 mm[Hg] Status: Comments: [...]
--- OUTSIDE RECORDS SUMMARY | 2020-08-12 14:45 | XMS REPORT | Summary of Care ---
:1990 Author Name Cornell Zhao Address Unavailable Unavailable , Care Team [...] , antepartum (646.83, O26. 899) Status: Active Medications Name Dates Details Doxylamine-Pyridoxine 10-10 MG Oral Tabl et Delayed Release TAKE 1 TABLET BEDTIME Quantity: 30 Refills: 1 ALBERTO Concepcion, SUBHRATHA Start : 24-May-2020 Active Allergies and [...] history Status: Resolved Procedures Procedure Dates Details History of Loop electrosurgical excision procedure Completed [...] (finding) Vital Signs Date Test Result Details :30 Systolic blood pressure 118 mm[Hg] Status: Comments: Location: LUE; Position: Sitting Diastolic blood pressure 84 mm[Hg] Status: Comment s: Location: LUE; Position: Sitting Body height 66 in Status: Weight 185 lb Status: Body mass index (BMI) [Ratio] 29.86 kg/m2 Status: Body surface area Derived from formula 1.93 m2 S tatus: Body temperature 98.1 f Status: Comments: Me thod: Temporal Heart Rate 81 /min Status: :09 Physical Findings 1 Status: Comme nts: PHQ-9 Adult Depression Screening :07 Systolic blood pressure 132 mm[Hg] Status: Comments: [...] thod: Temporal Heart Rate 77 /min Status: :16 Systolic blood pressure 136 mm[Hg] Status: Comments: [...] tatus: Body temperature 98.3 f Status: Comments: Wa thod: Temporal Heart Rate 90 /min Status: [...] cleared or approved bythe FDA or the human resources temp of the assay. :45 [QL] HCG, TOTAL, QN Comments: REPORT COM MENT:FASTING:NO HCG, TOTAL, QN 447 {miU/ml} (Above high Commen ts: Reference RangeNon or premenopausal <5Postmenopausal <10 Values from different assay methods may vary.The use of this assay to monitor or to diagnose patients with cance threshold) r or any conditi on unrelatedto has not been cleared or approved bythe FDA or the human resources temp of the assay. :58 [QL] HCG, TOTAL, [...] cleared or approved bythe FDA or the human resources temp of the assay. :41 [QL] HCG, TOTAL, QN Comments: REPORT COM MENT:FASTING:NO HCG, TOTAL, QN 2386 {miU/ml} (Above high Comme nts: Reference RangeNon or premenopausal <5Postmenopausal <10 Values from different assay methods may vary.The use of this assay to monitor or to diagnose patients with cance threshold) r or any conditi on unrelatedto has not been cleared or approved bythe FDA or the human resources temp of the assay. :38 [QL] HCG, TOTAL, QN Comments: REPORT COM MENT:FASTING:NO HCG, TOTAL, QN 6460 {miU/ml} (Above high Comme nts: Reference RangeNon or premenopausal <5Postmenopausal <10 Values from different assay methods may vary.The use of this assay to monitor or to diagnose patients with cance threshold) r or any conditi on unrelatedto has not been cleared or approved bythe FDA or the human resources temp of the assay. :35 [QL] CULTURE, URINE, ROUTINE CULTURE Comments: CULTUR E, URINE, ROUTINE Micro Number: [id number] Test Status: Final Specimen Source: URINE, CLEAN CATCH Specimen Quality: Adequate Result: No Growth [id number] [Q] OBSTETRIC PANEL WHITE BLOOD CELL COUNT 6.5 {Thousand/u} (Normal ) Range: 3.8-10.8 RED BLOOD CELL COUNT 4.32 {Million/uL} (Normal) Range: 3.80-5.10 HEMOGLOBIN 13.2 g/dl (Normal) Range: 11.7- 15.5 HEMATOCRIT 38.6 % (Normal) Range: 35.0-45. 0 MCV 89.4 fL (Normal) Range: 80.0-10 0.0 MCH 30.6 pg (Normal) Range: 27.0-33 .0 MCHC 34.2 g/dl (Normal) Range: 32.0- 36.0 RDW 11.9 % (Normal) Range: 11.0-15. 0 PLATELET COUNT 291 {Thousand/u} (Normal) Range : 140-400 MPV 10.2 fL (Normal) Range: 7.5-12. 5 ABSOLUTE NEUTROPHILS 4427 {cells/uL} (Normal) R pastora: 7780-6989 ABSOLUTE LYMPHOCYTES 1567 {cells/uL} (Normal) R pastora: 850-3900 ABSOLUTE MONOCYTES 436 {cells/uL} (Normal) Rang e: 200-950 ABSOLUTE EOSINOPHILS 52 {cells/uL} (Normal) Ran ge: 15-500 ABSOLUTE BASOPHILS 20 {cells/uL} (Normal) Range : 0-200 NEUTROPHILS 68.1 % (Normal) LYMPHOCYTES 24.1 % (Normal) MONOCYTES 6.7 % (Normal) EOSINOPHILS 0.8 % (Normal) BASOPHILS 0.3 % (Normal) ANTIBODY SCREEN, RBC W/REFL NO ANTIBODIES DETECT ED Comments: Reference range No antibodies detected This assay is a screening test for the detection of red blood cell antibodies. The test is not to be used for pretransfusion screening or for the me ID, TITER AND AG (Normal) dical managemen t of an alloimmunized . ABO GROUP O RH TYPE RH(D) POSITIVE Comments: For ad ditional information, please refer to http://education.[employer]/faq/KTC519 (This link is being provided for informational/educational purposes only.) RPR (DX) W/REFL TITER AND NON-REACTIVE (Normal ) Range: NON-REACTIVE CONFIRMATORY TESTING HEPATITIS B SURFACE ANTIGEN NON-REACTIVE (Norm al) Range: NON-REACTIVE RUBELLA ANTIBODY (IGG) 1.65 {index} (Normal) Co mments: Index Interpretation ----- <0.90 Not consistent with Immunity 0.90-0.99 Equivocal > or = 1.00 Consistent with Immunity Th e presence of ru jeffrey IgG antibody suggests immunization or past or current infection withrubella virus. :31 [Q] HIV-1/2 Antigen and Antibodies, Four th Generation, with Reflexes HIV AG/AB, NON-REACTIVE Range: NON-REACT [place] 4TH GEN (Normal) Comments: HIV-1 antigen and HIV-1/HIV-2 antibodies were notdetected. There is no laboratory evidence of HIVinfection. PLEASE NOTE: This information has been disclosed toyou from records whose confidentiality may beprotected by s [place] law. If your state requires suchprotection, then the state law prohibits you frommaking any further disclosure of the informationwithout the specific written consent of the persont o whom it [facility] ns, or as otherwise permitted by law.A general authorization for the release of medical orother information is NOT sufficient for this purpose. For additional information please refer t ohttp://[employer]/faq/RFD733(This link is being provided for informational/educational purposes only.) The performance of this assay has not been clinicallyvalidated in patients less than 2 years old. :31 [QL] HEPATITIS C ANTIBODY HEPATITIS C ANTIBODY NON-REACTIVE (Normal) Ran ge: NON-REACTIVE SIGNAL TO CUT-OFF 0.02 (Normal) Range: <1.00 Comments: HCV an tibody was non-reactive. There is no laboratory evidence of HCV infection. In most cases, no further action is required. However,if recent HCV exposure is suspected, a test for HCV RNA(test code 3 5645) is suggest ed. For additional information please refer tohttp://education.[employer]/faq/QPC98t5(This link is being provided for informational/educational purposes only.) :31 [QL] TSH, 3RD GENERATION W/REFLEX TO FT4 TSH, 3RD GENERATION W/REFLEX TO 1.04 {MIU/L} (N ormal) Comments: Reference Range > or = 20 Years 0.40-4.50 Ranges First trimester 0.26-2.66 Second trimester 0.55-2.73 Third trimester 0.43-2.91 FT4 [id number] [QL] CULTURE, URINE, ROUTINE CULTURE Comments: CULTUR E, URINE, ROUTINE Micro Number: [id number] Test Status: Final Specimen Source: URINE, CLEAN CATCH Specimen Quality: Adequate Result: No Growth Plan of Care Name Dates Details Planned Observations Planned Goals not documented Planned Encounters Appointment; ALAN DOWLING P.A. On: 14-Jun-2020 15:30 Appointment; BIENVENIDO DOMINGUEZ M.D. On: 28-Jun-2020 1 6:00 Appointment; BIENVENIDO DOMINGUEZ M.D. On: 07-Jul-2020 16:00 Interventions Provided Discussion/Sonxabn35vh G1 @7w5 who presents for mucous discharge in - patient reassured this can be normal, kailey after intercourse- TVUS nml today with +FHT- discussed precautions and worrisome symptoms, which patient declines today- RTO PRN. Instructions Name Dates Details Instructions not documented [...]
--- OUTSIDE RECORDS SUMMARY | 2020-08-12 14:45 | XMS REPORT | Summary of Care ---
[...] EVERY DAY Quantity: 90 Refills: 1 ALBERTO Concepcion, SUBHRATHA Start : 28-Jun-2020 Active Allergies and [...] (finding) Vital Signs Date Test Result Details [id number] Systolic blood pressure 134 mm[Hg] Status: Comments: [...] Planned Goals not documented Planned Encounters Appointment; ALBERTO, SUBHRATHA, M.D. On: 25-Jul-2020 16:00 Appointment; MORGAN BEAN M.D. On: 16-Aug-2020 10: 00 Interventions Provided Discussion/SummaryYour pap and culture results are normal Instructions Name Dates Details Instructions not documented [...]
--- OUTSIDE RECORDS SUMMARY | 2020-08-12 14:46 | XMS REPORT | Summary of Care ---
:1990 Author Name BLANCA Concepcion Address Unavailable Unavailable , Care Team Providers Name Role Phone BLANCA Concepcion Unavailable Unavailable ALBERTO Concepcion Unavailable Unavailable JUSTIN ANGEL Unavailable Unavailable DERA ANGEL Unavailable Wei RIOS MD [facility] Unavailable Unavailable [...] 899) Status: Active (V22.2, Z34.90) Status: Active Yeast infection of the vagina (112.1, B37.3) Status: Active Medications Name Dates Details Doxylamine-Pyridoxine 10-10 MG Oral Tabl et Delayed Release TAKE 1 TABLET BEDTIME Quantity: 30 Refills: 1 ALBERTO Concepcion, SUBHRATHA Start : 24-May-2020 Active Aspirin EC 81 MG Oral Tablet Delayed Release TAKE 1 TABLET BY MOUTH EVERY DAY Quantity: 90 Refills: 1 ALBERTO Concepcion, [facility] Start : 28-Jun-2020 Active Fluconazole 150 MG Oral Tablet TAKE 1 TABLET 1 TIME ONLY. Quantity: 1 Refills: 0 RIOS JudObedBRI Start : 27-Jul-2020 Active Allergies and Adverse Reactions Name Dates [...] (finding) Vital Signs Date Test Result Details [id number] Systolic blood pressure 133 mm[Hg] Status: Comments: [...] thod: Temporal Heart Rate 93 /min Status: 5-Mwb-[id number]:11 Systolic blood pressure 134 mm[Hg] Status: Comments: [...] /min Status: Results Date Description Value Details :00 . [facility] - PAP w/reflex HPV if ASC-US or above Case Click ImageLink button for repor t. (Normal) :00 [QL] BV/ VAGINITIS PANEL DNA PROBE AFFIR M TRICHOMONAS: NOT DETECTED (Normal) Range: N OT DETECTED GARDNERELLA: NOT DETECTED (Normal) Range: N OT DETECTED MACHO: DETECTED (Abnormal) Range: NOT DETECTED Plan of Care Name Dates Details Planned Observations Planned Goals not documented Planned Encounters Appointment; BIENVENIDO DOMINGUEZ M.D. On: 19-Aug-2020 11:10 Appointment; LEE, 1 On: 19-Aug-2020 13:00 Interventions Provided Medication ChangesFluconazole 150 MG Oral Tablet - Start Instructions Name Dates Details Instructions not documented [...] 15:4 5 Encounter Diagnosis: Problem not documented Appointment; BIENVENIDO DOMINGUEZ M.D. On: 25-Jul-2020 16:00 Encounter Diagnosis: Problem not documented
--- OUTSIDE RECORDS SUMMARY | 2020-08-12 14:46 | XMS REPORT | Summary of Care ---
:1990 Author Name BLANCA Concepcion Address Unavailable Unavailable , Care Team Providers Name Role Phone ALBERTO Concepcion Unavailable Unavailable JUSTIN ANGEL Unavailable Unavailable DREA ANGEL Unavailable Wei RIOS MD [facility] Unavailable [...] (finding) Vital Signs Date Test Result Details :25 Systolic blood pressure 133 mm[Hg] Status: Comments: Location: LUE; Position: Sitting Diastolic blood pressure 86 mm[Hg] Status: Comment s: Location: LUE; Position: Sitting Body height 66 in Status: Weight 194.375 lb Status: Body mass index (BMI) [Ratio] 31.37 kg/m2 Status: Body surface area Derived from formula 1.98 m2 S tatus: Body temperature 97 f Status: Comments: Ak thod: Temporal Heart Rate 93 /min Status: [id number]-[id number]:11 Systolic blood pressure 134 mm[Hg] Status: Comments: [...] Click ImageLink button for repor t. (Normal) [id number] [QL] BV/ VAGINITIS PANEL DNA PROBE AFFIR M TRICHOMONAS: NOT DETECTED (Normal) Range: N OT DETECTED GARDNERELLA: NOT DETECTED (Normal) Range: N OT DETECTED MACHO: DETECTED (Abnormal) Range: NOT DETECTED Plan of Care Name Dates Details Planned Observations Planned Goals not documented Planned Encounters Appointment; BIENVENIDO DOMINGUEZ M.D. On: 19-Aug-2020 11:10 Appointment; LEE 1 On: 19-Aug-2020 13:00 Instructions Name Dates Details Instructions not documented [...]
--- OUTSIDE RECORDS SUMMARY | 2020-08-12 14:46 | XMS REPORT | Summary of Care ---
:1990 Author Name Litoreilly Rudd Address Unavailable Unavailable , Care Team [...] BEDTIME Quantity: 30 Refills: 1 ALBERTO Concepcion, SUB[facility] Start : 24-May-2020 Active Aspirin EC 81 MG Oral Tablet Delayed Release TAKE 1 TABLET BY MOUTH EVERY DAY Quantity: 90 Refills: 1 ALBERTO Concepcion, [facility] Start : 28-Jun-2020 Active Fluconazole 150 MG Oral Tablet TAKE 1 TABLET 1 TIME ONLY. Quantity: 1 Refills: 0 BLANCA RennerObedBRI Start : 27-Jul-2020 Active Allergies and Adverse [...] (finding) Vital Signs Date Test Result Details [id number] Systolic blood pressure 133 mm[Hg] Status: Comments: [...] thod: Temporal Heart Rate 93 /min Status: 4-[id number]:11 Systolic blood pressure 134 mm[Hg] Status: Comments: [...]
--- OUTSIDE RECORDS SUMMARY | 2020-08-12 14:47 | XMS REPORT | Continuity of Care Document ---
:1990 Author Organization [facility] Address [address] [place] [address] Care Team Providers Name Role Phone JOSE ALFREDO, NATUROPATHIC PHYSICIAN E Primary Care Physician Allergies, Adverse Reactions, Alerts No known allergies. Medications Medication Status Dose Units Route Sig Qty Days Start End Instruct ions Date Date Aspirin Active 1 ORAL Daily 30 30 Active 1 ORAL Daily 30 30 Multivit-Min W/Fe-Fa * Problems No problem information available. Procedures No procedure information available. Relevant Diagnostic Tests and/or Laboratory Data Laboratory Results Test Date/Time Result Interpretation Reference Result Comment Performing Range Site White Blood July 10.2 4.0-11.5 [facility], 10 4 Count 2019 [facility] 10763 7:30pm Red Blood Count July 4.10 3.80-5.20 [facility] , 2019 [facility] 91337 7:30pm Hemoglobin July 12.6 10.5-15.7 [facility], 2019 [facility] 16154 7:30pm Hematocrit July 36.8 34.0-50.0 [facility], 2019 [facility] 43689 7:30pm Mean July 89.8 86-100 [facility], Corpuscular 2019 [facility] 64102 Volume 7:30pm Mean July 30.7 26.2-33.4 [facility], Corpuscular 2019 [facility] 22912 Hemoglobin 7:30pm Mean July 34.2 30-34 [facility], [address] [facility] [address] [address] Corpuscular [address] [place] [address] Hemoglobin 7:30pm Concent Red Cell July 11.7 12.0-15.5 [facility], [address] Distribution [address] [place] [address] Width 7:30pm Platelet Count July 251 165-450 [facility], [address] [address] 2019 [facility] 98435 7:30pm Mean Platelet July 9.8 9.4-12.6 [facility], [address] Volume 2019 [facility] 83418 7:30pm Neutrophils (%) July 67.5 44.4-80.1 [facility] , [address] (Auto) 2019 [facility] 43989 7:30pm Immature October 0.3 0.0-0.4 [facility], [address] Granulocyte % 2019 [place] [address] (Auto) 7:30pm Lymphocytes (%) July 22.9 10.0-50.0 [facility] , 104 [facility] (Auto) 2019 [facility] 60762 7:30pm Monocytes (%) July 6.6 3.6-12.0 [facility], 104 [facility] (Auto) 2019 [facility] 84620 7:30pm Eosinophils (%) July 2.5 0.0-5.4 [facility] , 104 [facility] (Auto) 2019 [facility] 85582 7:30pm Basophils (%) July 0.2 0.1-1.2 [facility], 104 [facility] (Auto) 2019 [facility] 68601 7:30pm Neutrophils # July 6.86 1.56-6.13 [facility], [address] (Auto) 2019 [facility] 46467 7:30pm Absolute October 0.0 0.0-0.03 [facility], [address] Immature 2019 [facility] 65231 Granulocyte 7:30pm (auto Lymphocytes # July 2.3 1.18-3.74 [facility], 104 (Auto) 2019 [facility] 35175 7:30pm Monocytes # July 0.67 0.24-0.86 [facility], [address] (Auto) 2019 [facility] 41048 7:30pm Eosinophils # July 0.25 0.04-0.36 [facility], [address] (Auto) 2019 [facility] 13267 7:30pm Basophils # July 0.02 0.01-0.08 [facility], 10 4 [facility] (Auto) 2019 [facility] 53454 7:30pm Nucleated Red July 0 0-0.2 [facility], 104 Blood Cells % 2019 [facility] 53160 7:30pm Nucleated Red July 0 0 [facility], 104 Blood Cells # 2019 [facility] 58441 7:30pm Urine Color July COLORLESS [facility], 10 4 2019 [facility] 06717 7:05pm Urine October CLEAR CLEAR [facility], 104 Appearance 2019 [facility] 92483 7:05pm Urine Glucose July NEGATIVE NEGATIVE [facility], 104 (UA) 2019 [facility] 38336 7:05pm Urine Bilirubin July NEGATIVE NEGATIVE [facility] , 104 2019 [facility] 93512 7:05pm Urine Ketones July NEGATIVE NEGATIVE [facility], 104 2019 [place] [id number] 7:05pm Urine Specific October 1.005 1.003-1.03 [facility] , [address] [place] 2019 [facility] 03670 7:05pm Urine Blood July NEGATIVE NEGATIVE [facility], 10 4 2019 [facility] 41626 7:05pm Urine pH July 6.500 5-9 [facility], 104 2019 [facility] 73540 7:05pm Urine Protein July NEGATIVE NEGATIVE [facility], [address] [facility] 2019 [facility] 47367 7:05pm Urine October NORMAL 0.2-1.0 [facility], 104 Urobilinogen 2019 [facility] 00805 7:05pm Urine Nitrate July NEGATIVE NEGATIVE [facility], 104 2019 [facility] 27181 7:05pm Urine Leukocyte July NEGATIVE NEGATIVE [facility] , 104 Esterase 2019 [place] [id number] 7:05pm Urine RBC July <1 0-5 [facility], 104 2019 [facility] 85347 7:05pm Urine WBC July <1 0-5 [facility], [address] [facility] 2019 [place] [id number] 7:05pm Urine October <1 0-5 [facility], 104 Epithelial 2019 [facility] 65275 Cells 7:05pm Urine Bacteria July [address] [facility], 104 2019 Detected Detect [facility] 31008 7:05pm Urine Casts July [address] [facility], 10 4 2019 Detected Detect [facility] 62979 7:05pm Urine Culture July NO [facility], 104 Reflexed 2019 [facility] 00986 7:05pm Random Glucose July 107 74-106 [facility], 104 2019 [facility] 36284 7:30pm Blood Urea July 8 6-20 [facility], [address] Nitrogen 2019 [facility] 53506 7:30pm Serum July 273 280-300 [facility], 104 Osmolality 2019 [facility] 08619 7:30pm Creatinine July 0.4 0.50-0.90 [facility], 104 2019 [facility] 77704 7:30pm Glomerular October > 60.[address] [facility], 1 04 Filtration Rate 2019 ARE REPORTED [place] [id number] Calc 7:30pm IN mL/min/1.73m2. Normal GFR: >60mL/minModer ately decreased GFR: 30-59 mL/minSeverely decreased GFR: 15-29 mL/minKidney Failure (or Dialysis): <15 mL/minThe calculated eGFR is not valid for patients younger than 18 years or older than 75 years. BUN/Creatinine July 20.0 12-20 [facility], 104 Ratio 2019 [facility] 06072 7:30pm Sodium Level July 137 135-145 [facility], 1 04 2019 [facility] 17576 7:30pm Potassium Level July 3.8 3.5-5.2 [facility] , 104 2019 [facility] 11834 7:30pm Chloride Level July 103 98-108 [facility], 104 2019 [facility] 54622 7:30pm Carbon Dioxide July 22 21-32 [facility], 104 Level 2019 [facility] 82507 7:30pm Anion Gap July 15.8 12-20 [facility], 104 2019 [facility] 38415 7:30pm Calcium Level July 9.2 8.6-10.0 [facility], [address] [place] [address] 2019 [place] [address] 7:30pm Magnesium Level July 1.7 1.6-2.6 [facility] , [address] [place] [address] 2019 [place] [address] 7:30pm Total Protein July 7.0 6.6-8.7 [facility], [address] [place] [address] 2019 [place] [address] 7:30pm Albumin July 3.9 3.5-5.2 [facility], [address] [place] [address] 2019 [place] [address] 7:30pm Globulin October 3.1 [facility], [address] [place] [address] 2019 [place] [address] 7:30pm Albumin/Globuli July 1.[address]0 [facility] , [address] [place] [address] n Ratio 2019 [place] [address] 7:30pm Total Bilirubin July < 0.3 0.0-1.2 [facility] , [address] [place] [address] 2019 [place] [address] 7:30pm Aspartate Amino July 18 15-32 [facility] , [address] [place] [address] 2019 [place] [address] (AST/SGOT) 7:30pm Alanine July 16 0-33 [facility], [address] [place] [address] Aminotransferas 2019 [place] [address] e (ALT/SGPT) 7:30pm Total Alkaline July 54 35-105 [facility], [address] [place] [address] Phosphatase 2019 [facility] 36197 7:30pm Beta HCG, July 8038.0 0-[address] [facility], [address] [place] [address] 2019 [place]ANG[place]: [place] [address] 7:05pm NON- PREMENOPAUSAL POST-MENOPAUSA L <7Weeks of Gestation Expected Result mIU/mL3 5.8 - 71.24 9.5 - 7505 217 - 7,1386 158 - 31,7957 3697 - 163,5638 32,065 - 149,5719 63,803 - 151,20040 46,509 - 186,22498 27,832 - 210,06365 13,950 - 62,16824 12,039 - 70,19087 9,040 - 56,82669 8,175 - 55,95179 8,099 - 58,176 Health Concerns Health Concerns may be documented in an alternate section. Chief Complaint and Reason for Visit Chief Complaint OB/Uterine Contractions Reason for Visit [id number] Encounters Encounter Location(s) Arrival/Admit Date Discharge/Depart Date Provider(s) Departed Jonh August 06, 2020 August 06, 2020 NATALIE CARVAJAL Emergency Room [facility] 6:35pm 9:38pm [facility] Assessments No Assessments Information Available Functional Status No Functional Status information available Goals Goals may be documented in an alternate section. Immunizations No Immunization Information Available Mental Status No Mental Status Information Available Medical Equipment No Medical Equipment Information available Insurance Providers Guarantor Yvonne Hernandez Address [address] [facility] [address] Contact Info. Home Phone: Payer Policy Id Coverage Id Subscriber's Subscriber Id Effective E xpiration Name Date Date Blue Cross [id number] Hernandez, [id number] Blue [facility] Plan of Treatment Rest Drink plenty of fluids Follow up with [facility] [facility] as scheduled Future Tests Future scheduled test information is unavailable Pending Tests Pending diagnostic test information is unavailable Future Visits Future appointment information is unavailable Referrals to Other Providers Reason for Referral Start Provider Provider Contact Provider Address Referral Date Information RACHELLE VELIZ Work Phone: [address] [facility] NATUROPATHIC PHYSICIAN [address] [facility] 77 [phone] Future Procedures Future procedure information is unavailable Future Medications Future medication information is unavailable Patient Instructions Abdominal Pain During , Easy-to -Read Second Trimester of , Easy-to-R ead Social History Assigned Sex Female Vital Signs Vital Reading Result Collection Date/Time Weight 194 [lb_av] August 06, 2020 7 :00pm BMI (Body Mass Index) 31.3 kg/m2 August 06, 2020 7:00pm
--- NOTE | 2020-08-12 16:11 | RAD REPORT ---
EXAM DESCRIPTION: US - OB Limited - 08/12/2020 3:49 pm CLINICAL HISTORY: 18 weeks preg;Abd pain;Abd cramping, age. COMPARISON: No comparisons FINDINGS: A limited obstetrical ultrasound was requested behind the emergency room. A single variable presenting gestation is identified. Heart rate normal. Amniotic fluid volume is nor mal. Posterior placenta without previa or abruption. Cervix appears long and closed. The maternal adnexa show no worrisome findings.
[2020-08-12 16:28] LABS: Urine Blood NEGATIVE (NEG); Urine Glucose NEGATIVE (NEG); Urine Protein NEGATIVE (NEG); Urine Specific Gravity 1.015 (1.005-1.030); Urine pH 7.5 (5.0-7.0)
--- NOTE | 2020-08-12 16:41 | EDPHYS ---
Physician Documentation [facility] Name: Keeley Hernandez Age: 29 yrs Sex: Female : 1990 Arrival Date: 08/12/2020 Time: 14:42 Bed 8 Private MD: ED Physician Porfirio Barrientos HPI: 08/12 16:36 This 29 yrs old Female presents to ER via Ambulatory with complaints of kb Pelvic Pain - 18 wks preg. 16:36 The patient presents to the emergency department with abdominal pain, of the suprapubic kb area, that started Once a week since Jul 27, described as intermittent. The estimated gestational age is 18 weeks. course: care: private OB physician, Leakage of Fluid: none appreciated, Ultrasound: the patient has not had an ultrasound, Risk/complications: no obvious risks or complications are appreciated. Previous pregnancies: the patient has never been . Associated signs and symptoms: Pertinent positives: abdominal pain, Pertinent negatives: chest pain, diarrhea, dysuria, fever, frequency, nausea, ruptured membranes, seizure, shortness of breath, vaginal bleeding, vaginal discharge, vomiting. The patient has experienced similar episodes in the past, a few times. The patient has been recently seen by a physician:. Pt reports cramping/shooting pain that starts on left side of pelvis and radiates to right side. States she has had this pain three times now. Went to [facility] last weekend and was told everything was fine, but no US was done. Pt showed me labs from that visit on her cell phone. CBC, Basic, LFT and urine all wnl. 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 - Social history:: Smoking status: Patient denies any tobacco usage or history of. ROS: 16:35 Constitutional: Negative for fever, chills, and weight loss, Cardiovascular: Negative kb for chest pain, palpitations, and edema, Respiratory: Negative for shortness of breath, cough, wheezing, and pleuritic chest pain, Back: Negative for injury and pain, : Negative for injury, bleeding, discharge, and swelling, MS/Extremity: Negative for injury and deformity, Skin: Negative for injury, rash, and discoloration, Neuro: Negative for headache, weakness, numbness, tingling, and seizure. 16:35 Abdomen/GI: Positive for abdominal pain, abdominal cramps, Negative for nausea, vomiting, and diarrhea. Exam: 16:35 Constitutional: This is a well developed, well nourished patient who is awake, alert, kb and in no acute distress. Head/Face: Normocephalic, atraumatic. Chest/axilla: Normal chest wall appearance and motion. Nontender with no deformity. No lesions are appreciated. Cardiovascular: Regular rate and rhythm with a normal S1 and S2. No gallops, murmurs, or rubs. Normal PMI, no JVD. No pulse deficits. Respiratory: Lungs have equal breath sounds bilaterally, clear to auscultation and percussion. No rales, rhonchi or wheezes noted. No increased work of breathing, no retractions or nasal flaring. Skin: Warm, dry with normal turgor. Normal color with no rashes, no lesions, and no evidence of cellulitis. MS/ Extremity: Pulses equal, no cyanosis. Neurovascular intact. Full, normal range of motion. Neuro: Awake and alert, GCS 15, oriented to person, place, time, and situation. Cranial nerves II-XII grossly intact. Motor strength 5/5 in all extremities. Sensory grossly intact. Cerebellar exam normal. Normal gait. 16:35 Abdomen/GI: Inspection: abdomen appears normal, Bowel sounds: normal, in all quadrants, Palpation: abdomen is soft and non-tender, in all quadrants. Vital Signs: 14:58 BP 127 / 80; Pulse 76; Resp 16; Temp 98.6(TE); Pulse Ox 98% on R/A; Weight 88 kg; ss Height 5 ft. 6 in. (167.64 cm); Pain 0/10; 16:37 BP 122 / 77; Pulse 85; Resp 17; Pulse Ox 100% on R/A; tw2 14:58 Body Mass Index 31.31 (88.00 kg, 167.64 cm) ss MDM: 15:42 Patient medically screened. kb 16:35 Data reviewed: vital signs, nurses notes. Data interpreted: Pulse oximetry: on room air kb is 98 %. Interpretation: normal. Counseling: I had a detailed discussion with the patient and/or guardian regarding: the historical points, exam findings, and any diagnostic results supporting the discharge/admit diagnosis, lab results, radiology results, the need for outpatient follow up, an OB/Gyne specialist, to return to the emergency department if symptoms worsen or persist or if there are any questions or concerns that arise at home. 08/12 16:02 Order name: Urine Dipstick--Ancillary (enter results); Complete Time: 16:35 em1 08/12 16:02 Order name: Urine --Ancillary (enter results); Complete Time: 16:35 em1 08/12 14:57 Order name: Urine Dipstick-Ancillary (obtain specimen); Complete Time: 16:00 kb 08/12 14:57 Order name: Urine Test (obtain specimen); Complete Time: 16:00 kb 08/12 15:50 Order name: OB Limited; Complete Time: 16:15 EDMS Administered Medications: No medications were administered Disposition: 08/13 13:15 Co-signature as Attending Physician, Porfirio Barrientos MD I agree with the assessment and kdr plan of care. Disposition: 08/12/20 16:39 Discharged to Home. Impression: 18 weeks gestation of , Abdominal and pelvic pain. - Condition is Stable. - Discharge Instructions: Abdominal Pain During , [id number]. - Medication Reconciliation Form, Thank You Letter, Antibiotic Education, Prescription Opioid Use form. - Follow up: Emergency Department; When: As needed; Reason: Worsening of condition. Follow up: Private Physician; When: 2 - 3 days; Reason: Recheck today's complaints, Continuance of care, Re-evaluation by your physician. Signatures: Dispatcher [employer] Francesca Bello, PODIATRY PROFESSOR-C PODIATRY PROFESSOR-Porfirio Jacobsen MD MD [facility] Kandy Miguel RN RN ss Corrections: (The following items were deleted from the chart) 08/12 15:49 14:58 Transvaginal Ob+US.RAD.BRZ ordered. EDCA EDMS 16:48 16:39 08/12/2020 16:39 Discharged to Home. Impression: 18 weeks gestation of ; ss Abdominal and pelvic pain. Condition is Stable. Forms are Medication Reconciliation Form, Thank You Letter, Antibiotic Education, Prescription Opioid Use. Follow up: Emergency Department; When: As needed; Reason: Worsening of condition. Follow up: Private Physician; When: 2 - 3 days; Reason: Recheck today's complaints, Continuance of care, Re-evaluation by your physician. kb
--- NOTE | 2020-08-12 16:41 | ER ---
Nurse's Notes [facility] Name: Keeley Hernandez Age: 29 yrs Sex: Female : 1990 Arrival Date: 08/12/2020 Time: 14:42 Bed 8 Private MD: Diagnosis: 18 weeks gestation of ;Abdominal and pelvic pain Presentation: 08/12 14:58 Chief complaint: Patient states: Pt reports she is 18 weeks and 5 days . ss experiencing intermittent lower abd burning that began earlier today. Denies vaginal bleeding. PT reports that this happened last Saturday and she was seen at [facility] where they did blood work and checked for heart tones and discharged home. Pt reports pain went away, but was told if the pain came back to call her OB. She attempted to call her OB but the office was closed. Coronavirus screen: Client denies travel out of the [place] in the last 14 days. Ebola Screen: Patient denies exposure to infectious person. Patient denies travel to an Ebola-affected area in the 21 days before illness onset. Initial Sepsis Screen: Does the patient meet any 2 criteria? No. Patient's initial sepsis screen is negative. Does the patient have a suspected source of infection? No. Patient's initial sepsis screen is negative. Risk Assessment: Do you want to hurt yourself or someone else? Patient reports no desire to harm self or others. Onset of symptoms was August 12, 2020. 14:58 Method Of Arrival: Ambulatory ss 14:58 Acuity: JEROD 3 ss Triage Assessment: 15:45 General: Appears in no apparent distress. comfortable, Behavior is cooperative, bp appropriate for age, anxious. Pain: Complains of pain in pelvis. EENT: No deficits noted. Neuro: No deficits noted. Cardiovascular: No deficits noted. Respiratory: No deficits noted. GI: No signs and/or symptoms were reported involving the gastrointestinal system. : Reports pain in suprapubic area. Derm: No deficits noted. Musculoskeletal: No deficits noted. 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 - Social history:: Smoking status: Patient denies any tobacco usage or history of. Screenin:56 Abuse screen: Denies threats or abuse. Denies injuries from another. Nutritional bp screening: No deficits noted. Tuberculosis screening: No symptoms or risk factors identified. Fall Risk None identified. Assessment: 15:45 General: SEE TRIAGE NOTE. bp 16:37 Reassessment: Patient appears in no apparent distress at this time. No changes from tw2 previously documented assessment. Patient and/or family updated on plan of care and expected duration. Pain level reassessed. Patient is alert, oriented x 3, equal unlabored respirations, skin warm/dry/pink. Vital Signs: 14:58 BP 127 / 80; Pulse 76; Resp 16; Temp 98.6(TE); Pulse Ox 98% on R/A; Weight 88 kg; ss Height 5 ft. 6 in. (167.64 cm); Pain 0/10; 16:37 BP 122 / 77; Pulse 85; Resp 17; Pulse Ox 100% on R/A; tw2 14:58 Body Mass Index 31.31 (88.00 kg, 167.64 cm) ss ED Course: 14:42 Patient arrived in ED. as 15:01 Triage completed. ss 15:02 Arm band placed on right wrist. ss 15:11 Francesca Hill FNP-C is PHCP. kb 15:11 Porfirio Barrientos MD is Attending Physician. kb 15:50 OB Limited In Process Unspecified. EDMS 15:51 Timur Mcrae, MACIE is Primary Nurse. bp 15:56 Patient has correct armband on for positive identification. Bed in low position. Call bp light in reach. Side rails up X2. 16:02 Warm blanket given. Pulse ox on. NIBP on. 5 16:02 Urine collected: clean catch specimen, clear. 5 16:04 Urine --Ancillary (enter results) Sent. mh5 16:04 Urine Dipstick--Ancillary (enter results) Sent. mh5 16:48 No provider procedures requiring assistance completed. Patient did not have IV access ss during this emergency room visit. Administered Medications: No medications were administered Outcome: 16:39 Discharge ordered by . kb 16:46 Discharged to home ambulatory. 16:46 Condition: good 16:46 Discharge instructions given to patient, Instructed on discharge instructions, follow up and referral plans. Demonstrated understanding of instructions, follow-up care. 16:48 Patient left the ED. Signatures: Dispatcher [employer] EDAZ Francesca Hill, ERIC BARNETT-Emilee Unger Shelby, RN RN Kate Zuleta RN RN 2 Ella Sosa [facility] Timur Mcrae RN RN bp
[2020-08-12 16:54] VITALS: TEMP 98.6
[2020-08-12 16:56] VITALS: BP 122/77; O2SAT 100
== END 2020-08-12 16:48 | disposition home or self-care (01) ==
LOC: ER 14:40
DX: O26.892 Other specified pregnancy related conditions, second trimester (principal); Z3A.18 18 weeks gestation of pregnancy; Z79.82 Long term (current) use of aspirin
CPT/HCPCS: 76815; 81003; 81025; 99283